=== PATIENT | male | born 1960 ===

== ENCOUNTER → 2018-12-20 | Day surgery (SDC) | payer BC ==
--- NOTE | 2018-12-12 13:11 | HP ---
AMENDED REPORT NOW INCLUDES DESIGNATED COSIGNER PREOPERATIVE HISTORY AND PHYSICAL: DATE OF ADMISSION/SURGERY: 12/20/18 DATE OF OFFICE VISIT/ENCOUNTER: 11/28/18 ATTENDING SURGEON: Starla Banks MD * (DICTATED BY REE SALEH) PROCEDURE: Left wrist carpal tunnel release, ulnar nerve decompression at left elbow. HISTORY OF PRESENT ILLNESS: This is a 58-year-old male. He complains of pain, numbness, and tingling in his left hand. This has been ongoing for the past 4 to 5 years. He feels like primarily his thumb, index and middle fingers are involved, but he also gets symptoms in the pinky quite regularly. He gets symptoms at night that awaken him and he also gets symptoms during the day. He is quite symptomatic when he is riding his bike. He has tried wearing a wrist brace, but that has not been helpful. He has had a couple of nerve conduction studies in the past, which show carpal tunnel syndrome. He also clinically has evidence of ulnar neuropathy at the elbow. The patient has consented to proceed with surgical intervention for both of these problems. PAST MEDICAL HISTORY: 1. Hyperthyroidism. 2. Hypertension. PAST SURGICAL HISTORY: Left shoulder arthroscopy in 2009. CURRENT MEDICATIONS: 1. Lisinopril 10 mg daily. 2. Propylthiouracil 50 mg daily. 3. Vitamin B6 50 mg daily. 4. Vitamin B12 500 mcg daily. ALLERGIES: No known drug allergies. FAMILY MEDICAL HISTORY: Colon cancer, hypertension, diabetes. 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 He denies tobacco use and recreational drug use. He drinks alcohol on occasion. REVIEW OF SYSTEMS: Negative for general, cephalic, cardiovascular, respiratory , GI, , other musculoskeletal, integumentary, endocrine, neurologic, and hematologic symptoms. Infectious Disease: Negative for MRSA, hepatitis C, HIV. PHYSICAL EXAMINATION GENERAL: A well-developed, well-nourished 58-year-old male, in no acute distress. VITAL SIGNS: Height 5 feet 9 inches, weight 216 pounds. Pulse rate 66, blood pressure 142/91. HEENT: Normocephalic, atraumatic. Pupils are equal, round, and reactive to light and accommodation. Extraocular movements are intact. Throat is clear. NECK: Supple. No palpable lymph nodes. PULMONARY: Lungs are clear to auscultation bilaterally. No wheezes, rales, or rhonchi. CARDIOVASCULAR: Regular rate and rhythm. S1, S2. No murmurs, rubs, or gallops. No edema. ABDOMEN: Positive bowel sounds. Soft, nontender. NEUROLOGICAL: Alert and oriented x3. Cranial nerves II through XII are intact. Sensation is intact to light touch. MUSCULOSKELETAL: On exam of his left upper extremity, he has mild thenar atrophy on the left when compared to the right and weakness with thumb abduction on the left. He has good strength to finger abduction. He has a positive Tinel's sign at the ulnar nerve at the left elbow and a positive Phalen 's test. Negative Tinel's at the median nerve on the left. He has good range of motion in his elbows and wrists with no pain. Sensation is intact to light touch throughout his hand. DIAGNOSTIC STUDIES: EMG nerve conduction study from 2017 shows carpal tunnel syndrome bilaterally. ASSESSMENT: Left carpal tunnel syndrome and ulnar neuropathy at the elbow. PLAN: The patient is scheduled to undergo left wrist carpal tunnel release and ulnar nerve decompression at the left elbow with Dr. Banks on 12/20/18. He will return to the office 10 days postop for followup and suture removal. A prescription for [place] was e-scribed to the patient's pharmacy for postoperative pain management. REE SALEH [id number]/[facility] #: [id number] ADAMA
[~2018-12-20] MED LIST: Buffered Lidocaine 1% SYRIN* 1 ML/SYRINGE INTRADERM ONE; Bupivacaine 0.5%* 50 ML MDV VIAL ONE; Lactated Ringers 1000 ML Bag* 1,000 ML IV SCH; Lidocaine 1% INJ* 10 MG/ML 30 ML SDV ONE; Midazolam* 1 MG/ML 2 ML VIAL (2 MG) ONE; Midazolam* 1 MG/ML 5 ML VIAL (5 MG) ONE; Naloxone* 0.4 MG/ML 1 ML VIAL IV PRN; ceFAZolin 2 GM PREMIX in ORs 2 GM/50 ML BAG ONE; fentaNYL* 50 MCG/ML 2 ML VIAL (100 MCG VIAL) ONE
[2018-12-20 09:41] VITALS: BP 124/69
--- NOTE | 2018-12-20 10:08 | OP ---
DATE OF OPERATION: 12/20/18 [facility] DATE OF : 56 SURGEON: Starla Banks MD. CO PILOT: REE Pinon. ANESTHESIA: Local MAC. PRE-OP DIAGNOSIS: Left carpal tunnel syndrome and ulnar nerve compression at the left elbow. POST-OP DIAGNOSIS: Left carpal tunnel syndrome and ulnar nerve compression at the left elbow. OPERATIVE PROCEDURE: Left carpal tunnel release and ulnar nerve decompression at the elbow. ESTIMATED BLOOD LOSS: Zero. TOURNIQUET TIME: About 30 minutes. INDICATIONS FOR PROCEDURE: Mina is a 58-year-old man who has numbness and tingling in his left hand. Nerve conduction studies show median nerve compression at the wrist and ulnar nerve compression at the elbow. He presents for ulnar nerve decompression at the elbow and carpal tunnel release, both on the left side. DESCRIPTION OF PROCEDURE: The patient was brought to the operating room, was given a sedation anesthetic and a local infiltration of 10 cc of 1% plain lidocaine in the palm of his left hand and 10 cc of 0.5% Marcaine plain on the medial aspect of his left elbow. Skin of his left upper extremity was prepped and draped in the usual sterile fashion. The upper extremity was exsanguinated and the tourniquet elevated to 250 mmHg. A longitudinal incision was made in the palm in line with the right finger. We dissected through the subcutaneous tissue down to the transverse carpal ligament. The ligament was divided sharply with the knife and then more proximally with the scissors. The nerve was dissected free from the surrounding tissue and there was an area of moderate compression at the mid portion of the ligament. The wound was irrigated and the skin edges were reapproximated with 4-0 nylon suture. Next, a curvilinear incision was made centered between the medial epicondyle and the tip of the olecranon process. We dissected through the subcutaneous tissue down to the ulnar nerve proximal to the elbow. The elbow was carefully dissected out proximal for several centimeters above the elbow joint and then through the Guyon canal. The nerve was very edematous. The FCU fascia was completely released both superficial and deep and this was very tight. The nerve was in good condition after complete release. The wound was copiously irrigated with saline. The subcutaneous tissue was closed with 3-0 Vicryl suture and the skin with skin timothy. The wounds were dressed with Xeroform, 4x4, Webril, and an Jonn wrap. The patient tolerated the procedure well and was brought to the recovery room in good condition. [id number]/[facility] #: [id number] ADAMA
== END | disposition home or self-care (01) ==
LOC: OREAST 06:22
PROVIDERS: ATTEND Orthopaedic Surgery
DX: G56.02 Carpal tunnel syndrome, left upper limb (principal); G56.22 Lesion of ulnar nerve, left upper limb; I10 Essential (primary) hypertension; E05.90 Thyrotoxicosis, unspecified without thyrotoxic crisis or storm
CPT/HCPCS: J0690; J2250; J3010; J3490